=== PATIENT | male | born 1955 | race Caucasian/White ===

== ENCOUNTER 2017-10-01 13:45 | Day surgery (SDC) | payer OTHER ==
[~2017-10-01] VITALS: Ht 177.8 cm; Wt 78.9 kg
[2017-10-01 15:52] VITALS: BP 142/98
[2017-10-01] MEDS ORDERED: LACTATED RINGERS 1,000 ML IV SCH (16:04)
[2017-10-01] MEDS ORDERED: PLEASE ENTER ALLERGIES MC SCH (16:30)
[2017-10-01] MEDS ORDERED: TIMOLOL LEFTEYE (16:33)
[2017-10-01] MEDS ORDERED: LATANOPROST LEFTEYE (16:33)
[2017-10-01] MEDS ORDERED: LEVOTHYROXINE PO (16:33)
[2017-10-01] MEDS ORDERED: MIDAZOLAM 1 MG/ML, 2ML ONE (20:05)
[2017-10-01] MEDS ORDERED: FENTANYL PF 250 MCG/5ML ONE (20:06)
[2017-10-01] MEDS ORDERED: BUPIVACAINE/PF 0.5% ONE ×2 (20:16→20:56)
[2017-10-01] MEDS ORDERED: EPINEPHRINE 1 MG/ML, 1ML ONE ×2 (20:16→20:56)
[2017-10-01] MEDS ORDERED: MEPERIDINE/PF 25MG/0.5ML IVPush PRN (20:30)
[2017-10-01] MEDS ORDERED: HYDROmorphone 1 MG/ML, 1ML IV PRN (20:30)
[2017-10-01] MEDS ORDERED: METOPROLOL 1 MG/ML, 5ML IV PRN (20:30)
[2017-10-01] MEDS ORDERED: OXYcodone 5 MG/5 ML ORAL.SOL UDC PO PRN (20:30)
[2017-10-01] MEDS ORDERED: hydrALAzine 20 MG/ML, 1ML IV PRN (20:30)
[2017-10-01] MEDS ORDERED: ACETAMINOPHEN 325 MG TABLET PO PRN (20:30)
[2017-10-01] MEDS ORDERED: ALBUTEROL SULFATE 2.5 MG/3 ML NPPB PRN (20:30)
[2017-10-01] MEDS ORDERED: ONDANSETRON 2MG/ML, 2ML IVPush PRN ×2 (20:30→23:30)
[2017-10-01] MEDS ORDERED: PROMETHAZINE 25 MG/ML, 1ML IV PRN (20:30)
[2017-10-01] MEDS ORDERED: EPHEDRINE 50 MG/ML, 1ML IVPush PRN (20:30)
[2017-10-01] MEDS ORDERED: LABETALOL 5MG/ML, 20ML IV PRN (20:30)
[2017-10-01] MEDS ORDERED: NEOSTIGMINE 1 MG/ML, 10ML ONE (20:33)
[2017-10-01] MEDS ORDERED: GLYCOPYRROLATE 0.2MG/1ML, 5ML ONE (20:33)
[2017-10-01] MEDS ORDERED: PROPOFOL 10 MG/ML, 20ML ONE (20:37)
[2017-10-01] MEDS ORDERED: ONDANSETRON 2MG/ML, 2ML ONE ×3 (20:38→23:08)
[2017-10-01] MEDS ORDERED: CEFAZOLIN 1,000 MG ONE ×2 (20:38)
[2017-10-01] MEDS ORDERED: DEXAMETHASONE 4 MG/ML, 1ML ONE (20:38)
[2017-10-01] MEDS ORDERED: ROCURONIUM 10 MG/ML,10ML ONE (20:38)
[2017-10-01] MEDS ORDERED: BUPIVACAINE/PF-EPI 0.5% 1:200K IM ONE (20:46)
[2017-10-01] MEDS ORDERED: hydrALAzine 20 MG/ML, 1ML ONE (21:52)
[2017-10-01] MEDS ORDERED: ACETAMINOPHEN 650 MG/20.3 ML UDC ONE (21:52)
[2017-10-01] MEDS ORDERED: FENTANYL PF 100 MCG/2ML ONE (21:53)
[2017-10-01] MEDS ORDERED: OXYcodone 5 MG/5 ML ORAL.SOL UDC ONE (21:53)
[2017-10-01] MEDS: FENTANYL PF 100 MCG/2ML IV PRN ×2 (22:13→22:23)
== END 2017-10-01 23:56 | disposition home or self-care (01) ==
LOC: OR 13:45 → 4NOR 22:54 → OR 23:56
PROVIDERS: ATTEND Surgery
DX: K40.90 Unilateral inguinal hernia, without obstruction or gangrene, not specified as recurrent (principal); K42.0 Umbilical hernia with obstruction, without gangrene; Z88.1 Allergy status to other antibiotic agents; Z88.0 Allergy status to penicillin; Z98.890 Other specified postprocedural states; Z85.038 Personal history of other malignant neoplasm of large intestine
CPT/HCPCS: 49587; 49650; C1781; J0171; J0360; J0690; J1100; J2250; J2405; J2704; J2710; J3010; J3490; J7120